=== PATIENT | female | born 1960 | race Caucasian/White ===

== ENCOUNTER 2020-05-29 15:00 | Emergency (ER) | payer OTHER ==
[~2020-05-29 15:00] MED LIST: ACETAMINOPHEN500 M1 PO; ALLER-CHLOR4 MG PO; ASPIRIN EC81 MG PO; ASPIRIN325 MG PO; ATORVASTATIN CA80 MG PO; AZELASTINE205.5 MCG/; AZITHROMYCIN250 MG PO; B-12500 MCG PO; BACLOFEN 10MG T10 MG PO; BUMEX1 MG PO; CIPRO500 MG PO; CITALOPRAM 40MG40 MG PO; COQ-10100 MG PO; DEMADEX20 MG PO; DRISDOL50000 UNIT PO; DUONEB 2.5-0.5M1 AMP NEB; ENTRESTO 49 MG1 EACH PO; FLONASE; FLONASE ALLER15.8 ML; IBUPROFEN800 MG PO; LASIX20 MG PO; LEVAQUIN500 MG PO; LEVAQUIN750 MG PO; LEVOTHYROXINE100 MCG PO; METOPROLOL TART50 MG PO; METRONIDAZOLE500 MG PO; MOBIC7.5 MG PO; NORCO 5-325 TA1 EACH PO; PANTOPRAZOLE SO40 MG PO; PEPCID AC20 MG PO; PERCOCET 5-3251 EACH PO; PHENERGAN25 M1 PO; PREDNISONE 20MG20 MG PO; PYRIDIUM200 M1 PO; ROBITUSSIN W/COD5 ML PO; SYNTHROID100 MCG PO; SYNTHROID88 MCG PO; TOPROL XL 50 MG50 MG PO; TRAZODONE 50MG50 MG PO; TRAZODONE PO; VENTOLIN HFA IN18 GM INH; VITAMIN B-121000 MC1 PO; VOLTAREN ARTHRI20 GM TOP; WELLBUTRIN75 MG PO; ZANTAC150 MG PO
[2020-05-29 15:52] LABS: BASOPHIL 0.3 % (0-2); HCT 33.8 % (37.0-47.0); HGB 10.4 g/dl (12.5-16.0); LYMPHOCYTE 22.5 % (15-48); MCH 30.7 pg (25.0-31.0); MCHC 30.8 g/dL (32.0-36.0); MCV 99.7 fL (78.0-100.0); MONOCYTE 9.4 % (0-12); MPV 8.9 fL (6.0-9.5); NEUTROPHIL 66.5 % (41-80); NRBC 0; PLT 226 K/uL (150-400); RBC 3.39 M/uL (4.20-5.40); RDW 14.5 % (11.5-14.0); WBC 9.5 K/uL (4.0-10.5)
[2020-05-29 16:13] LABS: CREATININE 2.4 mg/dL (0.51-0.95); POTASSIUM 3.7 mmol/L (3.5-5.1)
[2020-05-29] MEDS ORDERED: AUGMENTIN 875-1 EACH PO (16:46)
== END 2020-05-29 17:01 | disposition home or self-care (01) ==
LOC: FER 15:00
PROVIDERS: Emergency Medicine
DX: L03.116 Cellulitis of left lower limb (principal); I12.9 Hypertensive chronic kidney disease with stage 1 through stage 4 chronic kidney disease, or unspecified chronic kidney disease; N18.9 Chronic kidney disease, unspecified; Z88.1 Allergy status to other antibiotic agents
CPT/HCPCS: 36415; 73630; 80048; 85025; J7030

== ENCOUNTER 2020-07-13 16:04 | Emergency (ER) | payer OTHER ==
[~2020-07-13 16:04] MED LIST changes: +AUGMENTIN 875-1 EACH PO
[2020-07-13 16:54] LABS: BASOPHIL 0.3 % (0-2); HCT 35.1 % (37.0-47.0); HGB 10.8 g/dl (12.5-16.0); LYMPHOCYTE 28.4 % (15-48); MCH 29.8 pg (25.0-31.0); MCHC 30.8 g/dL (32.0-36.0); MCV 96.7 fL (78.0-100.0); MONOCYTE 8.6 % (0-12); MPV 9.3 fL (6.0-9.5); NEUTROPHIL 61.1 % (41-80); NRBC 0; PLT 299 K/uL (150-400); RBC 3.63 M/uL (4.20-5.40); RDW 13.2 % (11.5-14.0); WBC 10.4 K/uL (4.0-10.5)
[2020-07-13 16:59] LABS: INR 1.07 (0.9-1.2); PROTHROMBIN TIME 13.2 SECONDS (11.4-13.6); PTT 27.5 SECONDS (22.2-34.7)
[2020-07-13 17:02] LABS: ALBUMIN 3.1 g/dL (3.4-5.0); BILIRUBIN - TOTAL 0.3 mg/dL (0.2-1.0); BUN/CREAT RATIO (CALC) 21.8 RATIO; CREATININE 1.88 mg/dL (0.51-0.95); GLOBULIN (CALCULATION) 3.3 g/dL; POTASSIUM 3.1 mmol/L (3.5-5.1); TOTAL PROTEIN 6.4 g/dL (6.4-8.2)
== END 2020-07-13 19:25 | disposition home or self-care (01) ==
LOC: FER 16:04
PROVIDERS: Emergency Medicine
DX: R07.89 Other chest pain (principal); R91.8 Other nonspecific abnormal finding of lung field; R06.02 Shortness of breath; I10 Essential (primary) hypertension; E78.5 Hyperlipidemia, unspecified; E07.9 Disorder of thyroid, unspecified; Z87.891 Personal history of nicotine dependence; Z88.1 Allergy status to other antibiotic agents; Z79.899 Other long term (current) drug therapy; Z79.82 Long term (current) use of aspirin
CPT/HCPCS: 36415; 71045; 80053; 84484; 85025; 85610; 85730; 93005

== ENCOUNTER 2020-07-30 17:00 | Emergency (ER) | payer OTHER ==
[2020-07-30 18:38] LABS: BASOPHIL 0.3 % (0-2); EOSINOPHIL 2.1 % (0-5); LYMPHOCYTE 39.9 % (15-48); MCH 30.3 pg (25.0-31.0); MCHC 31.3 g/dL (32.0-36.0); MONOCYTE 8.8 % (0-12); NEUTROPHIL 48.8 % (41-80); NRBC 0; PLT 260 K/uL (150-400); RDW 14.5 % (11.5-14.0); WBC 6.8 K/uL (4.0-10.5)
[2020-07-30 18:54] LABS: ALBUMIN 3.1 g/dL (3.4-5.0); BILIRUBIN - TOTAL 0.3 mg/dL (0.2-1.0); BUN/CREAT RATIO (CALC) 17.3 RATIO; CREATININE 2.02 mg/dL (0.51-0.95); GLOBULIN (CALCULATION) 3.9 g/dL; POTASSIUM 4.2 mmol/L (3.5-5.1)
[2020-07-30 18:58] LABS: BILIRUBIN NEGATIVE (NEGATIVE); BLOOD NEGATIVE Ery/uL (NEGATIVE); CLARITY CLEAR (CLEAR); COLOR YELLOW (YELLOW); GLUCOSE (U) NORMAL (NORMAL); LEUKOCYTES NEGATIVE Leu/uL (NEGATIVE); NITRITE NEGATIVE (NEGATIVE); PROTEIN NEGATIVE (NEGATIVE); SPECIFIC GRAVITY 1.015 (1.001-1.030); UROBILINOGEN 0.2 mg/dL (0.2-1.0); pH 5.5 (5.0-9.0)
[2020-07-30] MEDS ORDERED: IBUPROFEN800 MG PO (23:35)
[2020-07-30] MEDS ORDERED: CYCLOBENZAPRINE10 MG PO (23:35)
== END 2020-07-30 23:38 | disposition home or self-care (01) ==
LOC: FER 17:00
PROVIDERS: Emergency Medicine
DX: M54.5 Low back pain (principal); R10.9 Unspecified abdominal pain; I12.9 Hypertensive chronic kidney disease with stage 1 through stage 4 chronic kidney disease, or unspecified chronic kidney disease; N18.4 Chronic kidney disease, stage 4 (severe); J44.9 Chronic obstructive pulmonary disease, unspecified; Z95.0 Presence of cardiac pacemaker; Z88.1 Allergy status to other antibiotic agents; Z85.850 Personal history of malignant neoplasm of thyroid; Z79.899 Other long term (current) drug therapy
CPT/HCPCS: 36415; 71045; 72100; 80053; 81003; 83690; 85025; J1885

== ENCOUNTER 2020-09-25 20:37 | Emergency (ER) | payer OTHER ==
[~2020-09-25 20:37] MED LIST changes: +CYCLOBENZAPRINE10 MG PO
[2020-09-25] MEDS ORDERED: ZPAK PO (21:58)
[2020-09-25] MEDS ORDERED: MEDROL 4MG DOSEP4 MG PO (21:58)
== END 2020-09-25 22:09 | disposition home or self-care (01) ==
LOC: FER 20:37
DX: J44.1 Chronic obstructive pulmonary disease with (acute) exacerbation (principal); I10 Essential (primary) hypertension; Z95.0 Presence of cardiac pacemaker; Z88.1 Allergy status to other antibiotic agents
CPT/HCPCS: 71045; J1100

== ENCOUNTER 2020-11-03 18:18 | Emergency (ER) | payer OTHER ==
[~2020-11-03 18:18] MED LIST changes: +MEDROL 4MG DOSEP4 MG PO; +ZPAK PO
[2020-11-03] MEDS ORDERED: NORCO 5-325 TA1 EACH PO (21:34)
== END 2020-11-03 22:00 | disposition home or self-care (01) ==
LOC: FER 18:18
DX: S42.402A Unspecified fracture of lower end of left humerus, initial encounter for closed fracture (principal); I10 Essential (primary) hypertension; J44.9 Chronic obstructive pulmonary disease, unspecified; Z85.850 Personal history of malignant neoplasm of thyroid; Z88.1 Allergy status to other antibiotic agents; Z79.899 Other long term (current) drug therapy; Z79.82 Long term (current) use of aspirin; W22.09XA Striking against other stationary object, initial encounter; Y92.009 Unspecified place in unspecified non-institutional (private) residence as the place of occurrence of the external cause
CPT/HCPCS: 73080

== ENCOUNTER 2021-05-24 11:32 | Day surgery (SDCO) | payer OTHER ==
[~2021-05-24] VITALS: Ht 157.5 cm; Wt 102.6 kg
[2021-05-24 12:33] LABS: BASOPHIL 0.3 % (0-2); EOSINOPHIL 0.6 % (0-5); HCT 32.7 % (37.0-47.0); HGB 10.6 g/dl (12.5-16.0); LYMPHOCYTE 20.3 % (15-48); MCH 33.4 pg (25.0-31.0); MCHC 32.4 g/dL (32.0-36.0); MCV 103.2 fL (78.0-100.0); MONOCYTE 12.7 % (0-12); MPV 9.2 fL (6.0-9.5); NEUTROPHIL 65.9 % (41-80); NRBC 0; PLT 195 K/uL (150-400); RBC 3.17 M/uL (4.20-5.40); RDW 14.8 % (11.5-14.0); WBC 6.6 K/uL (4.0-10.5)
[2021-05-24 13:07] LABS: ALBUMIN 3.8 g/dL (3.4-5.0); BILIRUBIN - TOTAL 0.5 mg/dL (0.2-1.0); BUN/CREAT RATIO (CALC) 13.1 RATIO; CREATININE 2.83 mg/dL (0.51-0.95); GLOBULIN (CALCULATION) 3.2 g/dL; POTASSIUM 4.4 mmol/L (3.5-5.1)
[2021-05-24 13:09] LABS: INFLUENZA A NAA NEGATIVE (NEGATIVE)
[2021-05-24 13:10] LABS: CORONAVIRUS 2019 SARS-COV-2 POSITIVE (NEGATIVE)
[2021-05-24] MEDS ORDERED: ARTHRITIS PAIN150 GM TOP (19:35)
[2021-05-24] MEDS ORDERED: TIZANIDINE HCL4 MG PO (19:36)
[2021-05-25 14:52] LABS: HCT 32.9 % (37.0-47.0); HGB 10.4 g/dl (12.5-16.0); MCH 33.1 pg (25.0-31.0); MCHC 31.6 g/dL (32.0-36.0); MCV 104.8 fL (78.0-100.0); MPV 9.7 fL (6.0-9.5); RBC 3.14 M/uL (4.20-5.40); RDW 14.9 % (11.5-14.0); WBC 5.4 K/uL (4.0-10.5)
[2021-05-25 15:05] LABS: BUN/CREAT RATIO (CALC) 14.8 RATIO; CREATININE 2.5 mg/dL (0.51-0.95); POTASSIUM 4.8 mmol/L (3.5-5.1)
[2021-05-26] MEDS ORDERED: DEMADEX20 MG PO (03:59)
[2021-05-26 06:43] LABS: HCT 31.9 % (37.0-47.0); HGB 10.1 g/dl (12.5-16.0); MCH 33.3 pg (25.0-31.0); MCHC 31.7 g/dL (32.0-36.0); MCV 105.3 fL (78.0-100.0); MPV 9.8 fL (6.0-9.5); RBC 3.03 M/uL (4.20-5.40); RDW 14.6 % (11.5-14.0); WBC 6.7 K/uL (4.0-10.5)
[2021-05-26 07:33] LABS: BUN/CREAT RATIO (CALC) 17.6 RATIO; CREATININE 2.44 mg/dL (0.51-0.95); POTASSIUM 4.4 mmol/L (3.5-5.1)
[2021-05-26] MEDS ORDERED: ENTRESTO 49 MG1 EACH PO (15:36)
[2021-05-26] MEDS ORDERED: DEXAMETHASONE 2M2 MG PO ×2 (15:36→16:12)
[2021-05-26] MEDS ORDERED: GLUCOTROL XL5 MG PO (17:05)
== END 2021-05-26 17:40 | disposition home or self-care (01) ==
LOC: FER 11:32 → FMS 14:09
PROVIDERS: Emergency Medicine; Nurse Practitioner Acute Care; Nurse Practitioner Family; ADMIT Family Medicine
DX: I13.0 Hypertensive heart and chronic kidney disease with heart failure and stage 1 through stage 4 chronic kidney disease, or unspecified chronic kidney disease (principal); N18.4 Chronic kidney disease, stage 4 (severe); I50.22 Chronic systolic (congestive) heart failure; N17.9 Acute kidney failure, unspecified; E11.22 Type 2 diabetes mellitus with diabetic chronic kidney disease; R51.9 Headache, unspecified; R07.89 Other chest pain; R09.02 Hypoxemia; E87.1 Hypo-osmolality and hyponatremia; D63.1 Anemia in chronic kidney disease; U07.1 COVID-19; E66.01 Morbid (severe) obesity due to excess calories; I25.2 Old myocardial infarction; I42.8 Other cardiomyopathies; E03.9 Hypothyroidism, unspecified; E78.5 Hyperlipidemia, unspecified; J93.83 Other pneumothorax; D35.2 Benign neoplasm of pituitary gland; F41.9 Anxiety disorder, unspecified; F32.A Depression, unspecified; G47.33 Obstructive sleep apnea (adult) (pediatric); Z85.850 Personal history of malignant neoplasm of thyroid; Z90.49 Acquired absence of other specified parts of digestive tract; Z90.710 Acquired absence of both cervix and uterus; Z80.9 Family history of malignant neoplasm, unspecified; Z82.49 Family history of ischemic heart disease and other diseases of the circulatory system; Z79.82 Long term (current) use of aspirin; Z79.2 Long term (current) use of antibiotics; Z79.899 Other long term (current) drug therapy; Z88.8 Allergy status to other drugs, medicaments and biological substances
CPT/HCPCS: 36415; 70450; 71045; 80048; 80053; 83036; 83880; 84484; 85025; 93005; 94640; G0378; J1100; J1650; J2405; J7040; U0002

== ENCOUNTER 2021-11-03 18:23 | Emergency (ER) | payer MEDICARE ==
[~2021-11-03 18:23] MED LIST changes: +ABILIFY5 M1 PO; +ARTHRITIS PAIN150 GM TOP; +DEXAMETHASONE 2M2 MG PO; +GLUCOTROL XL5 MG PO; +TIZANIDINE HCL4 MG PO; +TOLTERODINE TART2 M1 PO; +ZYLOPRIM100 MG PO
[2021-11-03 21:01] LABS: BASOPHIL 0.5 % (0-2); EOSINOPHIL 1.5 % (0-5); HCT 35.3 % (37.0-47.0); HGB 11.3 g/dl (12.5-16.0); LYMPHOCYTE 33.9 % (15-48); MCH 32.8 pg (25.0-31.0); MCV 102.6 fL (78.0-100.0); MONOCYTE 7.7 % (0-12); MPV 9.5 fL (6.0-9.5); NEUTROPHIL 56.2 % (41-80); NRBC 0; PLT 228 K/uL (150-400); RBC 3.44 M/uL (4.20-5.40); RDW 15.1 % (11.5-14.0); WBC 8.2 K/uL (4.0-10.5)
[2021-11-03 21:12] LABS: ALBUMIN 3.5 g/dL (3.4-5.0); BILIRUBIN - TOTAL 0.4 mg/dL (0.2-1.0); BUN/CREAT RATIO (CALC) 13.4 RATIO; CREATININE 1.94 mg/dL (0.51-0.95); GLOBULIN (CALCULATION) 3.7 g/dL; POTASSIUM 3.6 mmol/L (3.5-5.1); TOTAL PROTEIN 7.2 g/dL (6.4-8.2)
[2021-11-03 21:43] LABS: BILIRUBIN NEGATIVE (NEGATIVE); BLOOD NEGATIVE Ery/uL (NEGATIVE); CLARITY CLEAR (CLEAR); COLOR YELLOW (YELLOW); GLUCOSE (U) NORMAL (NORMAL); LEUKOCYTES NEGATIVE Leu/uL (NEGATIVE); NITRITE NEGATIVE (NEGATIVE); PROTEIN NEGATIVE (NEGATIVE); UROBILINOGEN 0.2 mg/dL (0.2-1.0)
[2021-11-03 22:11] LABS: CORONAVIRUS 2019 SARS-COV-2 NEGATIVE (NEGATIVE); INFLUENZA A NAA NEGATIVE (NEGATIVE)
[2021-11-04] MEDS ORDERED: ONDANSETRON ODT4 MG PO (01:15)
== END 2021-11-04 01:59 | disposition home or self-care (01) ==
LOC: FER 18:23
PROVIDERS: Nurse Practitioner Family
DX: R10.13 Epigastric pain (principal); R11.2 Nausea with vomiting, unspecified; I12.9 Hypertensive chronic kidney disease with stage 1 through stage 4 chronic kidney disease, or unspecified chronic kidney disease; N18.4 Chronic kidney disease, stage 4 (severe); I25.10 Atherosclerotic heart disease of native coronary artery without angina pectoris; Z20.822 Contact with and (suspected) exposure to COVID-19; Z87.891 Personal history of nicotine dependence; Z88.1 Allergy status to other antibiotic agents
CPT/HCPCS: 36415; 70450; 71250; 80053; 81003; 83880; 84484; 85025; 93005; J1170; J2405; U0002